=== PATIENT | male | born 1990 | race Caucasian/White ===

== ENCOUNTER 2016-06-28 16:50 | Emergency (ER) | payer OTHER ==
[2016-06-28] MEDS ORDERED: ACETAMINOPHEN 325 MG TABLET PO ONE (18:07)
--- NOTE | 2016-06-28 18:08 | ER Document Report ---
ED Medical Screen (RME) - General Stated Complaint: FEVER,COUGH,CONGESTION Mode of Arrival: Ambulatory Notes: Patient presents complaining of cough and fever. Patient reports cough for the past 2 days.Pt reports hempotysis at home. Patient states he's been seen in the past 2 days at the [facility], but they did not do any testing. Hx: none I have greeted and performed a rapid initial assessment of this patient. A comprehensive ED assessment and evaluation of the patient, analysis of test results and completion of the medical decision making process will be conducted by additional ED providers. - Related Data Allergies/Adverse Reactions: No Known Allergies Allergy (Verified 06/28/16 18:06) Physical Exam - Respiratory Respiratory status: No respiratory distress Breath sounds: Nonproductive cough
== END 2016-06-28 20:25 | disposition left against medical advice (07) ==
LOC: ER 16:50
DX: Z53.9 Procedure and treatment not carried out, unspecified reason (principal); R50.9 Fever, unspecified; R05 Cough; R09.81 Nasal congestion
CPT/HCPCS: 71020; 87804; 99281